=== PATIENT | male | born 1955 | race Caucasian/White ===

== ENCOUNTER → 2019-07-25 | Outpatient (CLI) | payer OTHER, BC ==
[~2019-07-25] MED LIST: ACTOS15 MG PO; ATORVASTATIN CA40 MG PO; BYDUREON P2 MG/0.65 SQ; CYMBALTA60 MG PO; GLUCOPHAGE500 MG PO; LISINOPRIL5 MG PO; MULTIVITAMINS PO; ZYRTEC 10 MG TA10 M1 PO; ZYRTEC10 M5 PO
--- NOTE | 2019-07-25 11:25 | EXE ---
[facility] [address] [place] [address] STRESS ECHOCARDIOGRAM Name: ELICIAOLIVIA Dariana Room #: [facility] [id number] Admission: 07/25/19 Attend Phys: Akhil Hector Discharge: Date of : 53 Report #: [id number] THIS REPORT FOR: //name// APPROVED REPORT Study performed: 07/25/2019 10:13:32 Exam: Stress Echocardiogram Indication: Arrythmia Patient Location: Out-Patient Stress Nurse: Ivana Khan RN Room #: Echo lab 2 Status: routine Ht: 5 ft 9 in HR: 72 bpm BP: 138/88 mmHg Rhythm: NSR Medical History Medical History: Hyperlipidemia, Arrhythmia Cardiac Risk Factors: Hyperlipidemia, FHX of CAD Exercise History: Physically active Procedure The patient underwent an Exercise Stress Test using the Fran Protocol. Blood pressure, heart rate, and EKG were monitored. An Echocardiogram was performed by agriculture laboratory technician in four stages in quad fashion. At peak stress, four selected images were obtained and placed side by side with resting images for comparison. Stress Test Details Stress Test: Exercise stress testing was performed using a Fran protocol. HR Resting HR: 72 bpm Max Heart Rate (APMHR): 155 bpm Max HR Achieved: 176 bpm Target HR (85% APMHR): 131 bpm % of APMHR: 113 Recovery HR: 95 bpm HR response to stress: Normal HR response to stress BP Resting BP: 138/88 mmHg Max BP: 198/90 mmHg Recovery BP: 146/80 mmHg BP response to stress: Normal blood pressure response to [facility] [address] [place] [address] STRESS ECHOCARDIOGRAM Name: OLIVIA RUBI Room #: [facility] [id number] Admission: 07/25/19 Attend Phys: [facility] Discharge: Date of : 53 Report #: [id number] stress. ECG Resting ECG: Sinus Rhythm Stress ECG: Sinus Tachycardia Arrhythmia: None Recovery ECG: Sinus Rhythm Clinical Reason for Termination: Maximal effort Exercise duration: 11 min 40 sec Highest Stage Achieved: Stage 4: 4.2 mph at 16% grade. Exercise capacity: 13.7 METs Overall Exercise Capacity for Age: Good Stress ECG Conclusion 1. Subjectively negative for ischemia 2. Electrocardiographically negative for ischemia 3. Adequate functional capacity Pre-Stress Echo The resting Echocardiogram showed normal left ventricular contractility with an estimated Ejection Fraction of about >55%. The resting echocardiogram demonstrated normal wall motion in all wall segments. Post-Stress Echo The stress Echocardiogram showed normal left ventricular contractility with an estimated Ejection Fraction of about 65-70%. Compared to rest, there were no stress-induced wall motion abnormalities. Conclusion Clinical Response: Non-ischemic Exercise Capacity: Superior Stress ECG Response: Non-ischemic Stress Echo Images: Non-ischemic 1. low risk study Other Information Study Quality: Good [facility] [address] [place] [address] STRESS ECHOCARDIOGRAM Name: OLIVIA RUBI Room #: REG [facility].#: [id number] Admission: 07/25/19 Attend Phys: Akhil Hector Discharge: Date of : 53 Report #: [id number] <Conclusion> 1. low risk study <ELECTRONICALLY SIGNED> By: Ramon Wright MD 07/25/19 1125 1125 24 Ramon Wright MD /INF
== END ==
LOC: CV 09:20
DX: R07.9 Chest pain, unspecified (principal)